=== PATIENT | male | born 1990 | race Two or more races ===

== ENCOUNTER 2024-11-27 18:43 | Emergency (ER) | payer SELFPAY ==
[2024-11-27 19:04] VITALS: BP 151/95; PULSE 69; RESP 18; TEMP 36.6; O2SAT 98; BMI 29.9
--- NOTE | 2024-11-27 19:22 | PD.EDHAND ---
Upper Extremity Injury RME/HPI General Chief Complaint: Hand/Wrist Problems Stated Complaint: RIGHT HAND LACERATION Time Seen by Provider: 11/27/24 19:15 Arrival date/time: 11/27/24 18:43 RME / HPI RME / HPI narrative: 34-year-old male patient with no significant medical history, came in for evaluation regarding right hand laceration. Patient was working with his car, accidentally sustained a laceration to the right hand palmar aspect, severity mild. Able to bend and extend the fingers without any limitation. Denies any other injury. Related Data Previous Rx's ?Medication ?Instructions ?Recorded ibuprofen 800 mg tablet 800 mg PO TID PRN pain #30 tabs 11/27/24 Allergies Allergy/AdvReac Type Severity Reaction Status Date / Time No Known Allergies Allergy Verified 11/27/24 18:45 Review of Systems Review of Systems Narrative Review of Systems: Review of system reviewed and within normal limits except mentioned in HPI ED Exam Narrative Physical exam: VITAL SIGNS: Reviewed. GENERAL APPEARANCE: Alert and interactive, follows commands, no acute distress, HEAD AND FACE: Non-traumatic. ENT: PERRL, pink conjunctivitis, eyelid no trauma, Mucous membrane moist. NECK: Supple, nontender, no nuchal rigidity. CHEST: No tenderness, no crepitus, no paradoxical movement, no retractions. LUNGS: Clear, well ventilated, symmetric, no rales, no wheezing, no ronchi, no stridor, good breath sounds bilaterally. HEART: Regular rate, regular rhythm, no murmur, no gallops. ABDOMEN: Soft, positive bowel sounds, nondistended, no guarding, nontender, no rebound, no masses, RECTAL: Deferred. GENITAL: Deferred. NEUROLOGICAL: Gross motor function intact sensory function intact, Appropriate for age. MUSCULOSKELETAL: low back nontender, full range of motion. EXTREMITIES: Nontender, full range of motion. SKIN: Color pink, dry, no rash, +2 cm flap-like laceration, right hand, palmar aspect. Full range of motion of the fingers and thumb and wrist, no abrasions, no contusions. LYMPHATICS: Deferred. Course Quality Measures none Orders Category Date Time Status Set Up Suture Tray STAT Care 11/27/24 20:02 Active Ibuprofen Tab [Motrin Tab] Med 11/27/24 19:22 Discontinued 800 mg PO X1 ONE Lidocaine 1% 20 ml [Xylocaine 1% 20 ML] Med 11/27/24 19:30 Discontinued 10 ml INFL X1 ONE Tet,Diphth,Pertuss(Acell)-Tdap [Boostrix Vacc] Med 11/27/24 19:22 Discontinued 0.5 ml IMI .ONCE ONE Vital Signs Vital signs: Vital Signs Temperature 98 F 11/27/24 19:04 Pulse Rate 69 11/27/24 19:04 Respiratory Rate 18 11/27/24 19:04 Blood Pressure 151/95 H 11/27/24 19:04 Pulse Oximetry (%) 98 11/27/24 19:04 Oxygen Delivery Method Room Air 11/27/24 19:04 Procedures -ED Laceration Laceration 1: Site: hand Side (If applicable): right Size (cm): 2 Description: flap Depth: simple, single layer Local Anesthetic: lidocaine 1% and lidocaine 2% Amount of anesthesia used (mL): 3 Pre-repair: wound explored Skin layer closed with: nylon Size (cm): 4-0 Number of sutures: 4 Technique: simple, interrupted Extremity Injury MDM Narrative MDM Narrative:: 34-year-old male patient with no significant medical history, came in for evaluation regarding right hand laceration. Patient was working with his car, accidentally sustained a laceration to the right hand palmar aspect, severity mild. Able to bend and extend the fingers without any limitation. Denies any other injury. Repair and suturing was done by me see procedure notes Patient data External records reviewed:: None Clinical information provided by:: patient and family Social determinants that could affect healthcare access:: none Patient has the following chronic illnesses:: None How is presenting disease/condition affected by chronic disease/condition?: no chronic disease Evaluation data The following diagnostics were reviewed and interpreted by me:: other (specify) Lab and/or radiology exams considered but not ordered:: None Interpretation Summary: None Medications / Prescriptions Medications or Prescriptions considered but not ordered:: None Medication administrations:: Medication Administration History Discontinued Medications Diphtheria/Tetanus/Acell Pertussis (Diphth,Pertuss(Acell),Tet Vac 0.5 Ml Vial) 0.5 ml IMi .ONCE ONE Stop: 11/27/24 19:23 Last Admin: 11/27/24 20:19 Dose: 0.5 ml Documented By: Ibuprofen (Ibuprofen Tab 400 Mg Tablet) 800 mg PO X1 ONE Stop: 11/27/24 19:23 Last Admin: 11/27/24 20:17 Dose: 800 mg Documented By: Lidocaine HCl (Lidocaine Hcl 1% 20 Ml Vial) 10 ml INFL X1 ONE Stop: 11/27/24 19:31 Last Admin: 11/27/24 20:22 Dose: 10 ml Documented By: Mammogram report Boostrix, Motrin, Consultations Consultation(s) initiated? (list below): No Diagnosis Upper Extremity Injury Differential Diagnosis: other (Hand laceration, contusion, avulsion) Most likely diagnosis given after review of the tests above:: None laceration Admission Indicated Admission indicated?: not indicated Admission Request Was there a request for admission?: No Disposition Plan Disposition Plan: Discharge Discharge Attestation Discharge Attestation: The patient and all family members were given an opportunity to ask questions and understood the discharge instructions. Discharge instructions specifically effects, indications for sooner follow up or return to the emergency department, and the expected course of current diagnosis. Patient condition: Stable Discharge Plan Plan Patient Disposition: HOME (Self Care) Disposition Comment: Stable Prescriptions/Referrals Prescriptions/Med Rec: New ibuprofen 800 mg tablet 800 mg PO TID PRN (Reason: pain) Qty: 30 0RF Problem List Clinical Impression: Hand laceration Patient/Caregiver Discharge Instructions Discharge Activity: activity as tolerated Education Materials: ED Laceration, Hand: All Closures Additional Instructions: Thank you for the opportunity for serving you today. You are stable for discharged . You are advised to: Follow-up with your PCP in 1 to 2 days Return to ED for worsening of symptoms Increase oral fluids Take medication as prescribed For removal of sutures in 7 to 10 days Daily dressing bacitracin as needed Print Language: Grenadian Stand Alone Forms: Ade Award Info., Patient Portal Info Letter PA/ASHLEY Supervising Physician RENÉ/ASHLEY Supervising Physician: MD Marcos
[2024-11-27] MEDS: IBUPROFEN TAB 400 MG TABLET 800 MG PO (20:17)
[2024-11-27] MEDS: DIPHTH,PERTUSS(ACELL),TET VAC 0.5 ML VIAL IMi (20:19)
[2024-11-27] MEDS: LIDOCAINE HCL 1% 20 ML VIAL 10 ML INFL (20:22)
== END 2024-11-27 20:41 | disposition home or self-care (01) ==
LOC: SERX 21:31
PROVIDERS: Emergency Provider Emergency Medicine
DX: S61.411A Laceration without foreign body of right hand, initial encounter (principal); W45.8XXA Other foreign body or object entering through skin, initial encounter; Y93.89 Activity, other specified; Y92.810 Car as the place of occurrence of the external cause; Z23 Encounter for immunization
CPT/HCPCS: 12001; 90471; 90715; 99283; J3490; A9270